=== PATIENT | female | born 1975 | race Caucasian/White ===

== ENCOUNTER 2018-05-31 16:49 | Emergency (ER) | payer OTHER ==
[2018-05-31] MEDS ORDERED: PROMETHAZINE HCL 25 MG TABLET PO ONE (20:14)
[2018-05-31] MEDS ORDERED: OXYCODONE-ACETAMINOPHEN 5-325 MG TABLET PO ONE (20:14)
--- NOTE | 2018-05-31 20:16 | ER Document Report ---
ED Medical Screen (RME) - General Chief Complaint: Abdominal Pain Stated Complaint: ABDOMINAL PAIN Time Seen by Provider: 05/31/18 20:09 Notes: 43-year-old female with worsening right upper quadrant abdominal pain with severe nausea and right shoulder blade pain. No fevers or shaking chills. No jaundice. I have treated and performed a rapid initial assessment of this patient. A comprehensive ED assessment and evaluation of the patient, analysis of test results and completion of medical decision making process will be conducted by additional ED providers. PHYSICAL EXAMINATION: GENERAL: distressed with pain LUNGS: Breath sounds clear to auscultation bilaterally and equal. No wheezes rales or rhonchi. HEART: Regular rate and rhythm without murmurs, rubs, gallops. ABDOMEN: Exquisite tenderness to palpation in the right upper quadrant. Guarding present. Extremities: No cyanosis, clubbing, or edema b/l. NEUROLOGICAL: Normal speech, normal gait. PSYCH: Normal mood, normal affect. TRAVEL OUTSIDE OF THE [place] IN LAST 30 DAYS: No - Related Data Allergies/Adverse Reactions: amoxicillin [From Augmentin] Allergy (Verified 05/31/18 16:51) clavulanic acid [From Augmentin] Allergy (Verified 05/31/18 16:51) HEMP Allergy (Uncoded 05/31/18 16:51) WOOL Allergy (Uncoded 05/31/18 16:51) Physical Exam - Vital signs Vitals: Temp Pulse Resp BP Pulse Ox 98.2 F 96 16 145/68 H 99 05/31/18 17:21 05/31/18 17:21 05/31/18 17:21 05/31/18 17:21 05/31/18 17:21 Course - Vital Signs Vital signs: Temp Pulse Resp BP Pulse Ox 98.2 F 96 16 145/68 H 99 05/31/18 17:21 05/31/18 17:21 05/31/18 17:21 05/31/18 17:21 05/31/18 17:21
[2018-05-31 21:24] LABS: ABSOLUTE EOSINOPHILS # (AUTO) 0.1 10^3/uL (0.0-0.6); ABSOLUTE LYMPHOCYTES (AUTO) 2.5 10^3/uL (0.5-4.7); ABSOLUTE MONOCYTES (AUTO) 0.6 10^3/uL (0.1-1.4); BASOPHILS % (AUTO) 0.1 % (0-2); EOSINOPHILS % (AUTO) 1.2 % (0-6); HEMATOCRIT 37.4 % (36.0-47.0); LYMPHOCYTES % (AUTO) 30.5 % (13-45); MEAN CORPUSCULAR HEMOGLOBIN 23.4 pg (27.0-33.4); MEAN CORPUSCULAR VOLUME 73 fl (80-97); MONOCYTES % (AUTO) 7.6 % (3-13); PLATELET COUNT 246 10^3/uL (150-450); RED BLOOD COUNT 5.11 10^6/uL (3.72-5.28); RED CELL DISTRIBUTION WIDTH 16.3 % (11.5-14.0); SEGMENTED NEUTROPHILS % (AUTO) 60.6 % (42-78); TOTAL CELLS COUNTED % (AUTO) 100 %; WHITE BLOOD COUNT 8.3 10^3/uL (4.0-10.5)
[2018-05-31 21:26] LABS: APPEARANCE,URINE CLEAR; BILIRUBIN,URINE NEGATIVE (NEGATIVE); COLOR,URINE YELLOW; GLUCOSE, URINE NEGATIVE (NEGATIVE); KETONES,URINE TRACE mg/dL (NEGATIVE); LEUKOCYTE ESTERASE,URINE NEGATIVE (NEGATIVE); NITRITE,URINE NEGATIVE (NEGATIVE); PROTEIN,URINE NEGATIVE (NEGATIVE); URINE SPECIFIC GRAVITY 1.026; UROBILINOGEN,URINE NEGATIVE mg/dL (<2.0)
[2018-05-31 21:48] LABS: ALANINE AMINOTRANSFERASE 25 U/L (9-52); ALBUMIN 4.4 g/dL (3.5-5.0); ALKALINE PHOSPHATASE 56 U/L (38-126); ANION GAP 10 (5-19); ASPARTATE AMINO TRANSFERASE 19 U/L (14-36); BILIRUBIN,DIRECT 0.1 mg/dL (0.0-0.4); BILIRUBIN,TOTAL 0.3 mg/dL (0.2-1.3); BLOOD UREA NITROGEN 24 mg/dL (7-20); CALCIUM 9.5 mg/dL (8.4-10.2); CARBON DIOXIDE 32 mmol/L (22-30); CHLORIDE 101 mmol/L (98-107); GLUCOSE 94 mg/dL (75-110); LIPASE 177.3 U/L (23-300); POTASSIUM 4.5 mmol/L (3.6-5.0); SODIUM 142.8 mmol/L (137-145); TOTAL PROTEIN 6.5 g/dL (6.3-8.2)
--- NOTE | 2018-05-31 22:15 | RADIOLOGY REPORT (SQ) ---
EXAM DESCRIPTION: US ABDOMEN LIMITED COMPLETED DATE/TME: 05/31/2018 20:13 CLINICAL HISTORY: 43 years, Female, ruq pain, nausea, shoulder blade pain COMPARISON: None. TECHNIQUE: Limited right upper quadrant ultrasound LIMITATIONS: None. FINDINGS: The liver is homogenous in echotexture without focal lesion. No gallstones or gallbladder wall thickening. The patient had pain with palpation over the right upper quadrant. CBD measures 2.7 mm. Visualized pancreas and right kidney are unremarkable. No ascites IMPRESSION: No gallstones. The patient did have pain with palpation over the right upper quadrant. Remainder unremarkable copyright 2010 [employer]- All Rights Reserved
--- NOTE | 2018-05-31 23:31 | ER Document Report ---
ED GI/ - General Chief Complaint: Abdominal Pain Stated Complaint: ABDOMINAL PAIN Time Seen by Provider: 05/31/18 23:30 Primary Care Provider: PANCHO ASHTON PA-C [Primary Care Provider] - Follow up as needed Mode of Arrival: Ambulatory Information source: Patient Notes: HISTORY OF PRESENT ILLNESS: Patient is a 43-year-old female with a past medical history of fibromyalgia who presents with acute onset right upper quadrant abdominal pain associated with nausea and vomiting beginning 2 days ago. Patient does report being chronically constipated. Location: Epigastric, right upper quadrant Onset: Sudden Provocation: Movement Quality: Cramping, tightness Radiation: Around to the back Severity: Severe Timing: Constant, waxing and waning but never resolves Associated symptoms: No fevers or chills, no chest pain or shortness of breath, no diarrhea REVIEW OF SYSTEMS: CONSTITUTIONAL : Denies fever or chills, no sweats. Denies recent illness. EENT: Denies eye, ear, throat, or mouth pain or symptoms. Denies nasal or sinus congestion. CARDIOVASCULAR: Denies chest pain. RESPIRATORY: Denies cough, cold, or chest congestion. Denies shortness of breath, difficulty breathing, or wheezing. GASTROINTESTINAL: Positive for abdominal pain. Positive for nonbloody and nonbilious emesis, negative for diarrhea. Positive for constipation. GENITOURINARY: Denies difficulty urinating, painful urination, burning, frequency, or blood in urine. Denies vaginal bleeding, abnormal or irregular periods. MUSCULOSKELETAL: Denies neck or back pain or joint pain or swelling. SKIN: Denies rash or skin lesions. HEMATOLOGIC : Denies easy bruising or bleeding. LYMPHATIC: Denies swollen, enlarged glands. NEUROLOGICAL: Denies altered mental status or loss of consciousness. Denies headache. Denies weakness or paralysis or loss of use of either side. Denies problems with gait or speech. Denies sensory or motor loss. PSYCHIATRIC: Denies anxiety or stress or depression. All other systems reviewed and negative. PHYSICAL EXAMINATION: GENERAL: Well-appearing, well-nourished and in no acute distress. HEAD: Atraumatic, normocephalic. No scalp deformity, depression, or crepitance. EYES: Pupils are 3 mm and equal/round/reactive to light, extraocular movements intact, sclera anicteric, conjunctiva are normal. ENT: Nares patent bilaterally, oropharynx clear without exudates or palatal petechia. Moist mucous membranes. No tonsil hypertrophy. NECK: Normal range of motion, supple without lymphadenopathy. LUNGS: Breath sounds present, equal, and clear to auscultation bilaterally. No wheezes, rales, or rhonchi. HEART: Regular rate and rhythm without murmurs, rubs, or gallops. 2+ peripheral pulses. Normal capillary refill. ABDOMEN: Soft and nondistended, moderate epigastric and right upper quadrant tenderness without peritoneal signs. Normoactive bowel sounds. No guarding, no rebound. No masses appreciated. BACK: Normal contour, no midline tenderness. Rectal exam deferred. PELVC: Deferred. EXTREMITIES: Normal range of motion, no pitting or edema. No cyanosis. NEUROLOGICAL: No focal neurological deficits. Moves all extremities spontan eously and on command. PSYCH: Normal mood, normal affect. No suicidal thoughts/ideations. No homoc idal thoughts/ideations. No hallucinations. SKIN: Warm, dry, normal turgor, no rashes or lesions noted. ASSESSMENT AND PLAN: This patient is a 43-year-old female who presents with right upper quadrant tenderness that could be consistent with cholecystitis versus cholelithiasis versus pancreatitis versus gastritis versus peptic ulcer disease. 1. Will obtain labs, urine, right upper quadrant ultrasound, and reassess. 2. Will give IV fluids with morphine and Zofran. 3. If ultrasound is negative, will consider CT scan. TRAVEL OUTSIDE OF THE [place] IN LAST 30 DAYS: No - Related Data Allergies/Adverse Reactions: amoxicillin [From Augmentin] Allergy (Verified 05/31/18 16:51) clavulanic acid [From Augmentin] Allergy (Verified 05/31/18 16:51) HEMP Allergy (Uncoded 05/31/18 16:51) WOOL Allergy (Uncoded 05/31/18 16:51) Past Medical History - General Information source: Patient - Social History Smoking Status: Never Smoker Chew tobacco use (# tins/day): No Frequency of alcohol use: None Drug Abuse: None Lives with: Family Family History: None Patient has suicidal ideation: No Patient has homicidal ideation: No - Past Medical History Cardiac Medical History: Reports: None Pulmonary Medical History: Reports: None EENT Medical History: Reports: None Neurological Medical History: Reports: None Endocrine Medical History: Reports: None Renal/ Medical History: Reports: None. Denies: Hx Peritoneal Dialysis Malignancy Medical History: Reports: None GI Medical History: Reports: None Musculoskeletal Medical History: Reports Hx Fibromyalgia Skin Medical History: Reports None Psychiatric Medical History: Reports: None Traumatic Medical History: Reports: None Infectious Medical History: Reports: None Past Surgical History: Reports: Hx Section - x2, Hx Tonsillectomy - Immunizations Immunizations up to date: Yes Hx Diphtheria, Pertussis, Tetanus Vaccination: Yes History of Influenza Vaccine for 01/2017 - 06/2017 Season: Unknown Physical Exam - Vital signs Vitals: Temp Pulse Resp BP Pulse Ox 98.2 F 96 16 145/68 H 99 05/31/18 17:21 05/31/18 17:21 05/31/18 17:21 05/31/18 17:21 05/31/18 17:21 Course - Re-evaluation Re-evalutation: 06/01/18 04:04 Blood work is unremarkable. An ultrasound shows no acute biliary pathology. A follow-up CT scan of the abdomen/pelvis is also negative for acute intra-abdominal pathology other than a possible resolved jejunojejunal intussusception without evidence of small bowel obstruction. Patient feels much better after medications and will be discharged home with return precautions and follow-up as needed. Patient voices both understanding and agreeing with the plan. - Vital Signs Vital signs: Temp Pulse Resp BP Pulse Ox 97.3 F 57 L 18 136/60 H 99 05/31/18 23:30 05/31/18 23:30 05/31/18 23:30 05/31/18 23:30 05/31/18 23:30 - Laboratory Result Diagrams: 05/31/18 21:09 05/31/18 21:09 Laboratory results interpreted by me: 05/31/18 05/31/18 05/31/18 21:09 21:09 21:09 MCV 73 L MCH 23.4 L RDW 16.3 H Carbon Dioxide 32 H BUN 24 H Urine Ketones TRACE H - Diagnostic Test Radiology reviewed: Image reviewed, Reports reviewed - EKG Interpretation by Me EKG shows normal: Sinus rhythm Rate: Normal Rhythm: NSR Waterproof/QRS: No: Right axis deviation, Left axis deviation, RBBB, LBBB, IVCD, LAHB/LAFB, LPHB/LPFB, Bifasicular block Voltage: No: Increased voltage, Consistant with LVH, Decreased voltage, Throughout, Limb leads P Waves: No: MAKENNA, LAE, Absent, AV Dissociation, Other Heart block present: No: 1st Degree, Mobitz 1, Mobitz 2, CHB (3rd degree block) When compared to previous EKG there are: Previous EKG unavailable Discharge - Discharge Clinical Impression: Abdominal pain Qualifiers: Abdominal location: right upper quadrant Qualified Code(s): R10.11 - Right upper quadrant pain Condition: Good Disposition: HOME, SELF-CARE Instructions: Abdominal Pain ([facility]) Additional Instructions: You have been evaluated in the Emergency Department for abdominal pain. While here, you had blood work as well as both an ultrasound and a CT scan of your abdomen that did not show concerning findings and it is now safe to be dis charged home. Please follow-up with your primary physician as well as a senior account director as instructed in 1 week. Return to the Emergency Department if you experience worsening pain, inability to keep down food, high fevers, or any other concerning symptoms. Prescriptions: Ondansetron [Zofran Odt 4 mg Tablet] 1 tab PO Q6HP PRN #30 tab.rapdis PRN Reason: For Nausea/Vomiting Tramadol HCl [Ultram 50 mg Tablet] 50 mg PO Q6HP PRN #28 tablet PRN Reason: For Pain Forms: Return to Work Referrals: PANCHO ASHTON PA-C [Primary Care Provider] - Follow up as needed NAHUN JAMES MD [ACTIVE STAFF] - Follow up as needed Print Language: Malaysian
[2018-06-01] MEDS ORDERED: MORPHINE SULFATE 10 MG/ML INJ IV ONE (00:23)
[2018-06-01] MEDS ORDERED: ONDANSETRON HCL INJ/PF 4 MG/2 ML SDV IV ONE (00:23)
--- NOTE | 2018-06-01 03:40 | RADIOLOGY REPORT (SQ) ---
EXAM DESCRIPTION: CT ABDOMEN PELVIS WITH IV CONTRAST COMPLETED DATE/TME: 06/01/2018 00:00 CLINICAL HISTORY: 43 years, Female, Abdominal pain COMPARISON: None. TECHNIQUE: 497 Images stored on PACS. All CT scanners at this facility use dose modulation, iterative reconstruction, and/or weight based dosing when appropriate to reduce radiation dose to as low as reasonably achievable (ALARA). [facility]: Dose Right [facility]: CareDose [facility]: Dose Right [facility]: Teradose 4D [facility]: [employer] LIMITATIONS: None. FINDINGS: Limited evaluation of the lung bases is unremarkable. Osseous structures are grossly intact. The liver, spleen, adrenal glands, pancreas, kidneys are unremarkable. 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 The gallbladder is present. There is a telescoping loop of bowel in the left mid abdomen, associated with what appear to be loops of jejunum consistent with entero-enteral intussusception. However, no evidence for obstruction. Normal appendix. Large amount of stool in the colon. No free air or free fluid. IMPRESSION: Findings consistent with entero-enteral intussusception involving loops of jejunum in the left upper quadrant. Findings are likely transient. There is no evidence for obstruction. Large amount of stool in the colon. TECHNICAL DOCUMENTATION: Quality ID # 436: Final reports with documentation of one or more dose reduction techniques (e.g., Automated exposure control, adjustment of the mA and/or kV according to patient size, use of iterative reconstruction technique) copyright 2010 [employer]- All Rights Reserved
[2018-06-01 04:21] VITALS: BP 127/57
--- NOTE | 2018-06-01 07:46 | EKG REPORT ---
SEVERITY:- NORMAL ECG - SINUS RHYTHM : Confirmed by: Kevin Minor MD 01-Jun-2018 07:45:31
== END 2018-06-01 04:21 | disposition home or self-care (01) ==
LOC: ER 16:49
DX: K59.00 Constipation, unspecified (principal); R10.11 Right upper quadrant pain; R10.811 Right upper quadrant abdominal tenderness; R10.813 Right lower quadrant abdominal tenderness; R11.2 Nausea with vomiting, unspecified; Z88.0 Allergy status to penicillin; Z91.048 Other nonmedicinal substance allergy status
CPT/HCPCS: 93005; 99284; 96374; 96375; 36415; 83690; 85025; 81025; 80053; 81001; 76705; 74177; 93010; J2270; J2405

== ENCOUNTER 2019-02-22 10:32 | Emergency (ER) | payer OTHER ==
--- NOTE | 2019-02-22 11:04 | ER Document Report ---
ED Medical Screen (RME) - General Chief Complaint: Altered Mental Status Stated Complaint: ANXIETY Time Seen by Provider: 02/22/19 10:58 Primary Care Provider: PANCHO ASHTON PA-C [Primary Care Provider] - Follow up as needed Notes: Patient is a 43-year-old female who presents to emergency department with a chief complaint of altered mental status. Patient reports slurred speech. Per the son last known normal was at 3 AM. Unable to obtain much of a history of up in triage. TRAVEL OUTSIDE OF THE [place] IN LAST 30 DAYS: No - Related Data Allergies/Adverse Reactions: amoxicillin [From Augmentin] Allergy (Verified 02/22/19 10:59) clavulanic acid [From Augmentin] Allergy (Verified 02/22/19 10:59) HEMP Allergy (Uncoded 02/22/19 10:59) WOOL Allergy (Uncoded 02/22/19 10:59) Past Medical History Renal/ Medical History: Denies: Hx Peritoneal Dialysis Musculoskeltal Medical History: Reports Hx Fibromyalgia Past Surgical History: Reports: Hx Section - x2, Hx Tonsillectomy - Immunizations Immunizations up to date: Yes Hx Diphtheria, Pertussis, Tetanus Vaccination: Yes Physical Exam - Vital signs Vitals: Temp Pulse Resp BP Pulse Ox 97.8 F 103 H 18 176/84 H 98 02/22/19 10:53 02/22/19 10:53 02/22/19 10:53 02/22/19 10:53 02/22/19 10:53 Course - Re-evaluation Re-evalutation: 02/22/19 11:03 Last known well 3 AM with the patient reports waking up with the symptoms of slurred speech. Patient does report numbness around the face and mouth. Order a stat CAT scan. I have greeted and performed a rapid initial assessment of this patient. A comprehensive ED assessment and evaluation of the patient, analysis of test results and completion of the medical decision making process will be conducted by additional ED providers. - Vital Signs Vital signs: Temp Pulse Resp BP Pulse Ox 97.8 F 103 H 18 176/84 H 98 02/22/19 10:53 02/22/19 10:53 02/22/19 10:53 02/22/19 10:53 02/22/19 10:53 Doctor's Discharge - Discharge Referrals: PANCHO ASHTON PA-C [Primary Care Provider] - Follow up as needed
[2019-02-22 11:35] LABS: INTERNATIONAL RATION (INR) 0.92; PROTHROMBIN TIME 12.4 SEC (11.4-15.4)
[2019-02-22 11:36] LABS: PARTIAL THROMBOPLASTIN TIME 27.1 SEC (23.5-35.8)
[2019-02-22 11:37] LABS: ABSOLUTE LYMPHOCYTES (AUTO) 1.5 10^3/uL (0.5-4.7); ABSOLUTE MONOCYTES (AUTO) 0.4 10^3/uL (0.1-1.4); ABSOLUTE NEUT (AUTO) 4.7 10^3/uL (1.7-8.2); BASOPHILS % (AUTO) 0.1 % (0-2); EOSINOPHILS % (AUTO) 0.1 % (0-6); HEMATOCRIT 36.5 % (36.0-47.0); HEMOGLOBIN 11.6 g/dL (12.0-15.5); LYMPHOCYTES % (AUTO) 22.9 % (13-45); MEAN CORPUSCULAR HEMOGLOBIN 20.9 pg (27.0-33.4); MEAN CORPUSCULAR HGB CONC 31.8 g/dL (32.0-36.0); MEAN CORPUSCULAR VOLUME 66 fl (80-97); MONOCYTES % (AUTO) 6.4 % (3-13); PLATELET COUNT 341 10^3/uL (150-450); RED BLOOD COUNT 5.55 10^6/uL (3.72-5.28); RED CELL DISTRIBUTION WIDTH 17.4 % (11.5-14.0); SEGMENTED NEUTROPHILS % (AUTO) 70.5 % (42-78); TOTAL CELLS COUNTED % (AUTO) 100 %; WHITE BLOOD COUNT 6.6 10^3/uL (4.0-10.5)
[2019-02-22] MEDS ORDERED: DIPHENHYDRAMINE HCL 50 MG/ML VIAL IV ONE (11:49)
[2019-02-22] MEDS ORDERED: PROCHLORPERAZINE EDISYLATE INJ 10 MG/2 ML VIAL IV ONE (11:49)
[2019-02-22] MEDS ORDERED: NORMAL SALINE 1000 ML 1,000 ML IV ONE (11:49)
--- NOTE | 2019-02-22 11:49 | RADIOLOGY REPORT (SQ) ---
EXAM DESCRIPTION: CT HEAD WITHOUT COMPLETED DATE/TIME: 02/22/2019 11:12 am REASON FOR STUDY: altered mental status, slurred speech COMPARISON: None. TECHNIQUE: Axial images acquired through the brain without intravenous contrast. Images reviewed wi th bone, brain and subdural windows. Additional sagittal and coronal reconstructions were generated. Images stored on PACS. All CT scanners at this facility use dose modulation, iterative reconstruction, and/or weight based d osing when appropriate to reduce radiation dose to as low as reasonably achievable (ALARA). [facility]: Dose Right [facility]: CareDose [facility]: Dose Right [facility]: Teradose 4D [facility]: Smart [employer] RADIATION DOSE: CT Rad equipment meets quality standard of care and radiation dose reduction techniq ues were employed. CTDIvol: 53.2 mGy. DLP: 1017 mGy-cm. mGy. LIMITATIONS: None. FINDINGS: VENTRICLES: Normal size and contour. CEREBRUM: No masses. No hemorrhage. No midline shift. No evidence for acute infarction. Normal gra y/white matter differentiation. No areas of low density in the white matter. CEREBELLUM: No masses. No hemorrhage. No alteration of density. No evidence for acute infarction. EXTRAAXIAL SPACES: No fluid collections. No masses. ORBITS AND GLOBE: No intra- or extraconal masses. Normal contour of globe without masses. CALVARIUM: No fracture. PARANASAL SINUSES: No fluid or mucosal thickening. SOFT TISSUES: No mass or hematoma. OTHER: No other significant finding. IMPRESSION: NORMAL BRAIN CT WITHOUT CONTRAST. EVIDENCE OF ACUTE STROKE: NO. COMMENT: Quality ID # 436: Final reports with documentation of one or more dose reduction techniques (e.g., Automated exposure control, adjustment of the mA and/or kV according to patient size, use of iterative reconstruction technique) TECHNICAL DOCUMENTATION: JOB ID: [id number] [employer]- All Rights Reserved Reading location - IP/workstation name: [email or web address]
[2019-02-22 11:56] LABS: ALBUMIN 4.8 g/dL (3.5-5.0); ALKALINE PHOSPHATASE 63 U/L (38-126); ANION GAP 13 (5-19); ASPARTATE AMINO TRANSFERASE 21 U/L (14-36); BILIRUBIN,DIRECT 0.2 mg/dL (0.0-0.4); BILIRUBIN,TOTAL 0.8 mg/dL (0.2-1.3); BLOOD UREA NITROGEN 10 mg/dL (7-20); CALCIUM 9.7 mg/dL (8.4-10.2); CARBON DIOXIDE 26 mmol/L (22-30); CHLORIDE 102 mmol/L (98-107); GLUCOSE 108 mg/dL (75-110); POTASSIUM 3.8 mmol/L (3.6-5.0); TOTAL PROTEIN 7.4 g/dL (6.3-8.2)
--- NOTE | 2019-02-22 11:56 | RADIOLOGY REPORT (SQ) ---
EXAM DESCRIPTION: CHEST SINGLE VIEW COMPLETED DATE/TIME: 02/22/2019 11:45 am REASON FOR STUDY: AMS COMPARISON: None. EXAM PARAMETERS: NUMBER OF VIEWS: One view. TECHNIQUE: Single frontal radiographic view of the chest acquired. RADIATION DOSE: NA LIMITATIONS: None. FINDINGS: LUNGS AND PLEURA: No opacities, masses or pneumothorax. No pleural effusion. MEDIASTINUM AND HILAR STRUCTURES: No masses. Contour normal. HEART AND VASCULAR STRUCTURES: Heart normal in size. Normal vasculature. BONES: No acute findings. HARDWARE: None in the chest. OTHER: No other significant finding. IMPRESSION: NO ACUTE RADIOGRAPHIC FINDING IN THE CHEST. TECHNICAL DOCUMENTATION: JOB ID: [id number] [employer]- All Rights Reserved Reading location - IP/workstation name: [email or web address]
[2019-02-22 13:53] VITALS: BP 113/57
--- NOTE | 2019-02-22 18:39 | ER Document Report ---
Entered by JEN HEAD SCRIBE 02/22/19 1149 Acting as scribe for:MAURISIO MAYEN MD ED General - General Chief Complaint: Altered Mental Status Stated Complaint: ANXIETY Time Seen by Provider: 02/22/19 10:58 Primary Care Provider: PANCHO ASHTON PA-C [ALLIED HEALTH PROFESSIONAL] - Follow up as needed Mode of Arrival: Medic Information source: Patient, Relative Notes: Patient is a 43 year old female with anxiety, depression, and ADHD that presents to the emergency department today with multiple complaints which began at 0300. Patient states that at 3:00 AM this morning she developed pain above her right eyebrow which progressed into right sided jaw pain, right ear pain, right shoulder pain, right hand pain, and pain that radiated across her chest. Patient initially states that she is unable to talk because of "jaw tightness", but when the patient is distracted she talks coherently. Patient is hyperventilating. Patient has frequent headaches. Patient is on quite a large amount of psychiatric medications and she appears quite anxious currently. A late history is that the patient ran out of her clonazepam 4 days ago. She takes clonazepam 1 mg twice daily on a chronic basis. The patient's symptom complex did not represent a neurological event. There was no reason to do a stroke work-up or to consider TPA in this patient. These anxiety, benzodiazepine withdrawal symptoms have been going on since 3:00 in the morning. Her symptoms of slurred speech were due to her holding her right jaw tense, when distracted she could relax and open the mouth and speak more clearly. TRAVEL OUTSIDE OF THE [place] IN LAST 30 DAYS: No - Related Data Allergies/Adverse Reactions: amoxicillin [From Augmentin] Allergy (Verified 02/22/19 10:59) clavulanic acid [From Augmentin] Allergy (Verified 02/22/19 10:59) HEMP Allergy (Uncoded 02/22/19 10:59) WOOL Allergy (Uncoded 02/22/19 10:59) Past Medical History - General Information source: Patient, Relative - Social History Smoking Status: Never Smoker Cigarette use (# per day): No Chew tobacco use (# tins/day): No Frequency of alcohol use: Occasional Drug Abuse: None Occupation: teacher Family History: None Patient has suicidal ideation: No Patient has homicidal ideation: No - Past Medical History Cardiac Medical History: Reports: Hx Hypertension Musculoskeletal Medical History: Reports Hx Fibromyalgia Psychiatric Medical History: Reports: Hx Anxiety, Hx Attention Deficit Hyperactivity Disorder, Hx Depression Past Surgical History: Reports: Hx Section - x2, Hx Tonsillectomy - Immunizations Immunizations up to date: Yes Hx Diphtheria, Pertussis, Tetanus Vaccination: Yes Review of Systems - Review of Systems Constitutional: No symptoms reported EENT: See HPI, Mouth pain - jaw pain Cardiovascular: See HPI, Chest pain Respiratory: See HPI, Other - hyperventilation Gastrointestinal: No symptoms reported Genitourinary: No symptoms reported Female Genitourinary: No symptoms reported Musculoskeletal: See HPI, Other - right arm pain Skin: No symptoms reported Hematologic/Lymphatic: No symptoms reported Neurological/Psychological: See HPI, Anxiety -: Yes All other systems reviewed and negative Physical Exam - Vital signs Vitals: Temp Pulse Resp BP Pulse Ox 97.8 F 103 H 18 176/84 H 98 02/22/19 10:53 02/22/19 10:53 02/22/19 10:53 02/22/19 10:53 02/22/19 10:53 - Notes Notes: Physical Exam: General: Alert, appears anxious, tearful, hyperventilating. HEENT: Normocephalic. Atraumatic. PERRL. Extraocular movements intact. Or opharynx clear. Neck: Supple. Non-tender. Respiratory: Hyperventilating when obtaining history. Clear and equal breath sounds bilaterally. Cardiovascular: Tachycardic. Regular rhythm. Abdominal: Normal Inspection. Non-tender. No distension. Normal Bowel Sounds. Back: No gross abnormalities. Extremities: Moves all four extremities. Upper extremities: Normal inspection. Normal ROM. Lower extremities: Normal inspection. No edema. Normal ROM. Neurological: Normal cognition. AAOx4. Normal speech. Psychological: Anxious. Tearful. Hyperventilating. Skin: Warm. Dry. Normal color. Course - Re-evaluation Re-evalutation: 02/22/19 13:53 At this time the patient is relaxed and comfortable. She is opening and closing her mouth without difficulty. Her speech is clear. She states she just feels tired and drowsy now. She was surprised that the symptoms could have been brought about by withdrawal from her clonazepam. She is encouraged to contact her primary care provider and get her medication refilled. - Vital Signs Vital signs: Temp Pulse Resp BP Pulse Ox 97.9 F 106 H 15 113/57 L 99 02/22/19 11:27 02/22/19 14:24 02/22/19 14:24 02/22/19 14:24 02/22/19 14:24 - Laboratory Result Diagrams: 02/22/19 11:17 02/22/19 11:17 Laboratory results interpreted by me: 02/22/19 02/22/19 11:14 11:17 RBC 5.55 H Hgb 11.6 L MCV 66 L MCH 20.9 L MCHC 31.8 L RDW 17.4 H POC Glucose 111 H - Diagnostic Test Radiology reviewed: Image reviewed, Reports reviewed - Unremarkable chest x-ray and CT scan. - EKG Interpretation by Me EKG shows normal: Sinus rhythm, [place], Intervals, QRS Complexes, ST-T Waves Rate: Normal - 97 Rhythm: NSR Discharge - Discharge Clinical Impression: Anxiety attack, Hyperventilation syndrome, Jaw pain, non-TMJ, Muscle spasm Headache Qualifiers: Headache type: unspecified Headache chronicity pattern: unspecified pattern Intractability: not intractable Qualified Code(s): R51 - Headache Condition: Stable Disposition: HOME, SELF-CARE Instructions: Anxiety ([facility]) Additional Instructions: The symptoms you experienced today are most likely related to anxiety and withdrawal from the clonazepam that you regularly take. The muscle tension and spasms were likely causing the headache, jaw pain, sh oulder, arm and chest pain. You should contact your primary care provider to get your medication refilled. Follow-up with your doctor if your symptoms persist after you start taking your clonazepam again. RETURN TO THE EMERGENCY ROOM IF ANY NEW OR WORSENING SYMPTOMS. Referrals: PANCHO ASHTON PA-C [ALLIED HEALTH PROFESSIONAL] - Follow up as needed Scribe Attestation: 02/22/19 12:31 I personally performed the services described in the documentation, reviewed and edited the documentation which was dictated to the scribe in my presence, and it accurately records my words and actions. I personally performed the services described in the documentation, reviewed and edited the documentation which was dictated to the scribe in my presence, and it accurately records my words and actions.
--- NOTE | 2019-02-22 20:17 | EKG REPORT ---
SEVERITY:- NORMAL ECG - INCOMPLETE ANALYSIS DUE TO MISSING DATA IN PRECORDIAL LEAD(S) SINUS RHYTHM : Confirmed by: Alexa Alexander MD 22-Feb-2019 20:16:17
--- NOTE | 2019-02-22 20:17 | EKG REPORT ---
SEVERITY:- NORMAL ECG - SINUS RHYTHM : Confirmed by: Alexa Alexander MD 22-Feb-2019 20:16:12
== END 2019-02-22 14:24 | disposition home or self-care (01) ==
LOC: ER 10:32
DX: F41.9 Anxiety disorder, unspecified (principal); R06.4 Hyperventilation; R68.84 Jaw pain; R51 Headache; M62.838 Other muscle spasm; F32.9 Major depressive disorder, single episode, unspecified; F90.9 Attention-deficit hyperactivity disorder, unspecified type; I10 Essential (primary) hypertension; Z88.0 Allergy status to penicillin
CPT/HCPCS: 93005; 36415; 82962; 85025; 85610; 85730; 80053; 84484; 71045; 70450; 93010; J1200; J0780; J7030

== ENCOUNTER 2019-07-23 23:57 | Emergency (ER) | payer OTHER ==
[2019-07-24 00:26] LABS: VENOUS BLOOD BASE EXCESS -2.3 mmol/L; VENOUS BLOOD HCO3 24.1 mmol/L (20-32); VENOUS BLOOD PCO2 48.2 mmHg (35-63); VENOUS BLOOD PH 7.32 (7.30-7.42)
[2019-07-24 00:41] LABS: ABSOLUTE EOSINOPHILS # (AUTO) 0.1 10^3/uL (0.0-0.6); ABSOLUTE LYMPHOCYTES (AUTO) 1.9 10^3/uL (0.5-4.7); ABSOLUTE MONOCYTES (AUTO) 0.4 10^3/uL (0.1-1.4); BASOPHILS % (AUTO) 0.1 % (0-2); EOSINOPHILS % (AUTO) 1.8 % (0-6); HEMATOCRIT 35.2 % (36.0-47.0); HEMOGLOBIN 11.1 g/dL (12.0-15.5); LYMPHOCYTES % (AUTO) 35.8 % (13-45); MEAN CORPUSCULAR HEMOGLOBIN 20.5 pg (27.0-33.4); MEAN CORPUSCULAR HGB CONC 31.4 g/dL (32.0-36.0); MEAN CORPUSCULAR VOLUME 65 fl (80-97); MONOCYTES % (AUTO) 7.4 % (3-13); PLATELET COUNT 217 10^3/uL (150-450); RED CELL DISTRIBUTION WIDTH 18.5 % (11.5-14.0); SEGMENTED NEUTROPHILS % (AUTO) 54.9 % (42-78); TOTAL CELLS COUNTED % (AUTO) 100 %; WHITE BLOOD COUNT 5.4 10^3/uL (4.0-10.5)
[2019-07-24 00:45] LABS: ACETAMINOPHEN < 10 ug/mL (10-30); ALBUMIN 4.2 g/dL (3.5-5.0); ALCOHOL 149 mg/dL (NONE DETECTED); ALKALINE PHOSPHATASE 44 U/L (38-126); ANION GAP 8 (5-19); ASPARTATE AMINO TRANSFERASE 24 U/L (14-36); BILIRUBIN,TOTAL 0.4 mg/dL (0.2-1.3); BLOOD UREA NITROGEN 7 mg/dL (7-20); CALCIUM 8.3 mg/dL (8.4-10.2); CARBON DIOXIDE 24 mmol/L (22-30); CHLORIDE 107 mmol/L (98-107); GLUCOSE 110 mg/dL (75-110); POTASSIUM 3.6 mmol/L (3.6-5.0); SALICYLATE < 1.0 mg/dL (2.0-20.0); TOTAL PROTEIN 6.7 g/dL (6.3-8.2)
[2019-07-24 01:37] LABS: APPEARANCE,URINE CLEAR; BILIRUBIN,URINE NEGATIVE (NEGATIVE); COLOR,URINE YELLOW; GLUCOSE, URINE NEGATIVE (NEGATIVE); KETONES,URINE NEGATIVE (NEGATIVE); LEUKOCYTE ESTERASE,URINE NEGATIVE (NEGATIVE); NITRITE,URINE NEGATIVE (NEGATIVE); PROTEIN,URINE NEGATIVE (NEGATIVE); URINE SPECIFIC GRAVITY 1.013; UROBILINOGEN,URINE NEGATIVE mg/dL (<2.0)
--- NOTE | 2019-07-24 01:56 | RADIOLOGY REPORT (SQ) ---
EXAM DESCRIPTION: XR CHEST 1 VIEW COMPLETED DATE/TME: 07/24/2019 00:08 CLINICAL HISTORY: 44 years, Female, overdose COMPARISON: 02/22/2019 chest NUMBER OF VIEWS: 1 TECHNIQUE: Portable chest LIMITATIONS: None. FINDINGS: Heart size is normal. Stable elevation right hemidiaphragm. Lungs clear. No pneumothorax. IMPRESSION: No acute cardiopulmonary process copyright 2010 [employer]- All Rights Reserved
[2019-07-24 01:57] LABS: URINE AMPHETAMINES SCREEN NEGATIVE; URINE BARBITURATES SCREEN NEGATIVE; URINE BENZODIAZEPINES SCREEN NEGATIVE; URINE COCAINE SCREEN NEGATIVE; URINE METHADONE SCREEN NEGATIVE; URINE PHENCYCLIDINE SCREEN NEGATIVE
[2019-07-24 01:59] LABS: URINE MARIJUANA (THC) SCREEN UNCONFIRMED POSITIVE
--- NOTE | 2019-07-24 02:01 | RADIOLOGY REPORT (SQ) ---
CLINICAL HISTORY: overdose COMPARISON: 02/22/2019. TECHNIQUE: CT HEAD WITHOUT IV CONTRAST on 07/24/2019 12:08 AM CDT This exam was performed according to our departmental dose-optimization program, which includes automated exposure control, adjustment of the mA and/or kV according to patient size and/or use of iterative reconstruction technique. FINDINGS: There is no acute hemorrhage, mass effect or midline shift. Ford-white differentiation is preserved. There is no hydrocephalus. There is no significant volume loss for age. The calvarium is intact. Orbits and globes are unremarkable. The paranasal sinuses are clear. Mastoid air cells are clear. IMPRESSION: No acute intracranial findings.
--- NOTE | 2019-07-24 02:16 | RADIOLOGY REPORT (SQ) ---
EXAM DESCRIPTION: XR ABDOMEN 1 VIEW (KUB) COMPLETED DATE/TME: 07/24/2019 00:08 CLINICAL HISTORY: 44 years, Female, overdose COMPARISON: None. NUMBER OF VIEWS: 1 TECHNIQUE: AP abdomen LIMITATIONS: None. FINDINGS: The bowel gas pattern is nonspecific. Evaluation for free air limited on a supine view. Surgical clips are noted. Osseous structures are grossly intact IMPRESSION: Nonspecific bowel gas pattern copyright 2010 [employer]- All Rights Reserved
[2019-07-24] MEDS ORDERED: LORAZEPAM INJ 2 MG/1 ML VIAL IV ONE (02:35)
[2019-07-24] MEDS ORDERED: DIPHENHYDRAMINE HCL 50 MG/ML VIAL IV ONE (03:08)
[2019-07-24] MEDS ORDERED: METOCLOPRAMIDE HCL INJ/PF 10 MG/2 ML SDV IV ONE (03:08)
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
[2019-07-24] MEDS ORDERED: HALOPERIDOL LACTATE INJ 5 MG/1 ML VIAL IV ONE (04:05)
[2019-07-24] MEDS ORDERED: KETOROLAC TROMETHAMINE INJ/PF 30 MG/1 ML SDV IV ONE (04:10)
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
--- NOTE | 2019-07-24 17:43 | EKG REPORT ---
SEVERITY:- BORDERLINE ECG - SINUS TACHYCARDIA BORDERLINE T ABNORMALITIES, INFERIOR LEADS : Confirmed by: Kevin Minor MD 24-Jul-2019 17:42:06
[2019-07-24 19:59] VITALS: BP 116/56
== END 2019-07-24 19:50 ==
LOC: ER 23:57
DX: T42.4X2A Poisoning by benzodiazepines, intentional self-harm, initial encounter (principal); F32.9 Major depressive disorder, single episode, unspecified; R41.82 Altered mental status, unspecified; Y92.009 Unspecified place in unspecified non-institutional (private) residence as the place of occurrence of the external cause; Z88.1 Allergy status to other antibiotic agents; Z88.8 Allergy status to other drugs, medicaments and biological substances; I10 Essential (primary) hypertension; Z79.899 Other long term (current) drug therapy
CPT/HCPCS: 93005; 99285; 96374; 96375; 36415; 80307 ×4; 84703; 85025; 80053; 81001; 84484; 82803; 71045; 74018; 70450; 93010; J1630; J1885; J2765; J2060

== ENCOUNTER → 2019-09-11 | Outpatient (CLI) | payer OTHER ==
--- NOTE | 2019-09-11 19:05 | RADIOLOGY REPORT (SQ) ---
EXAM DESCRIPTION: MRI LUMBAR SPINE WITHOUT IMAGES COMPLETED DATE/TIME: 09/11/2019 6:43 pm REASON FOR STUDY: M54.5 LOW BACK PAIN M54.5 LOW BACK PAIN COMPARISON: None. TECHNIQUE: Sagittal and Axial imaging includes T1, T2, STIR and gradient echo sequences. Coronal T2/ HASTE imaging. LIMITATIONS: None. FINDINGS: VISUALIZED UPPER ABDOMEN: Limited evaluation. No acute or suspicious findings suggested. SEGMENTATION: No transitional anatomy. The lowest well-developed disc space is labeled L5-S1. ALIGNMENT: Anatomic. VERTEBRAE: Intact. BONE MARROW: Normal. No marrow replacement or reactive changes. DISC SIGNAL: Decreased T2 signal with narrowing of the L5-S1 disc. POSTERIOR ELEMENTS: Generally intact. No pars defect evident. HARDWARE: None in the spine. CORD AND CONUS: Normal in size and signal intensity. Conus at the L1-2 level. SOFT TISSUES: No aortic aneurysm seen. No bulky retroperitoneal adenopathy or mass. No paraspinal mas s or fluid. L1-L2: No significant spinal stenosis or exit foraminal stenosis. L2-L3: No significant spinal stenosis or exit foraminal stenosis. L3-L4: No significant spinal stenosis or exit foraminal stenosis. L4-L5: No significant spinal stenosis or exit foraminal stenosis. L5-S1: No significant spinal stenosis or exit foraminal stenosis. LOWER THORACIC: Incompletely imaged. No stenosis seen. SACRUM: Visualized upper sacrum intact. OTHER: No other significant findings. IMPRESSION: NORMAL MRI LUMBAR SPINE. TECHNICAL DOCUMENTATION: JOB ID: [id number] [employer]- All Rights Reserved Reading location - IP/workstation name: [email or web address]
== END ==
LOC: RAD 16:31
PROVIDERS: ATTEND Registered Nurse
DX: M54.5 Low back pain (principal)
CPT/HCPCS: 72148

== ENCOUNTER → 2020-04-24 | Outpatient (CLI) | payer OTHER ==
--- NOTE | 2020-04-24 11:01 | RADIOLOGY REPORT (SQ) ---
EXAM DESCRIPTION: MRI CERVICAL SPINE WITHOUT IMAGES COMPLETED DATE/TIME: 04/24/2020 9:14 am REASON FOR STUDY: OTHER CERVICAL DISC DISORDERS, UNSPECIFIED CERVICAL REGION M50.80 OTHER CERVICAL DISC DISORDERS, UNSPECIFIED CERVICAL R COMPARISON: None. TECHNIQUE: Sagittal and Axial imaging includes T1, T2, STIR and gradient echo sequences. LIMITATIONS: Motion. FINDINGS: ALIGNMENT: Reversal of the lordotic curve. Grade 1 anterolisthesis of C7 relative to T1. VERTEBRAE: Intact. BONE MARROW: Normal. No marrow replacement or reactive changes. DISCS: Desiccation multiple levels. C5- 6 is fused. HARDWARE: None in the spine. CORD AND BASE OF BRAIN: Normal in size and signal intensity. SOFT TISSUES: No soft tissue masses. C1-C2: No significant spinal stenosis. C2-C3: No significant stenosis. C3-C4: Mild spinal stenosis due to disc bulge and uncovertebral arthropathy. Mild neural foraminal n arrowing bilaterally. C4-C5: Similar findings as at C3- 4. C5-C6: Moderate spinal stenosis. Moderate neural foraminal narrowing bilaterally, left greater than right. C6-C7: Moderate spinal stenosis. Moderate neural foraminal narrowing bilaterally. C7-T1: No significant stenosis. UPPER THORACIC: Incompletely imaged. No significant spinal stenosis or exit foraminal stenosis. OTHER: No other significant finding. IMPRESSION: Varying degrees of spinal stenosis and neural foraminal stenosis as described above. TECHNICAL DOCUMENTATION: JOB ID: [id number] [employer]- All Rights Reserved Reading location - IP/workstation name: [email or web address]
== END ==
LOC: RAD 08:40
PROVIDERS: ATTEND Physician Assistant
DX: M50.80 Other cervical disc disorders, unspecified cervical region (principal)
CPT/HCPCS: 72141